=== PATIENT | female | born 1990 | race Caucasian/White ===

== ENCOUNTER → 2018-03-31 16:32 | Outpatient (CLI) | payer OTHER, MEDICAID, SELFPAY ==
[2018-04-01 19:02] LABS: Strep Grp B PCR NEG for Grp B Strep
== END ==
PROVIDERS: Visit Provider Obstetrics & Gynecology
DX: Z34.83 Encounter for supervision of other normal pregnancy, third trimester (principal)
CPT/HCPCS: 87653

== ENCOUNTER 2018-04-10 14:01 | Outpatient (CLI) | payer OTHER, MEDICAID, SELFPAY ==
--- NOTE | 2018-04-11 12:00 | PM.OBTRLD ---
Evaluation Evaluation Baseline heart rate: 145 Variability: Moderate (11-25) monitor accelerations: Present monitor decelerations: Absent Category of Tracing: I
== END 2018-04-10 14:51 | disposition home or self-care (01) ==
LOC: LABOR 14:51 → OB 04-11 15:10
PROVIDERS: Visit Provider Obstetrics & Gynecology
DX: O36.8130 Decreased fetal movements, third trimester, not applicable or unspecified (principal); Z3A.37 37 weeks gestation of pregnancy
CPT/HCPCS: 59025; G0378; G0379

== ENCOUNTER 2018-04-21 07:09 | Inpatient (IN) | payer OTHER, MEDICAID, SELFPAY ==
[2018-04-21 08:28] LABS: Add Manual Diff / Slide Review YES; Hematocrit 36.1 % (36-46); Hemoglobin 12.4 g/dL (12.0-16.0); Mean Corpuscular HGB Conc 34.4 % (30-36); Mean Corpuscular Hemoglobin 33.6 PG (26-34); Mean Corpuscular Volume 97.9 fL (80-100); Platelet Count 338 X10^3/uL (150-400); Red Blood Cell Count 3.69 X10^6/uL (4.0-5.2); Red Cell Distribution Width 13.5 % (11.6-14.8); White Blood Cell Count 16.6 X10^3/uL (4.5-11.0)
[2018-04-21 08:58] VITALS: BP 120/61
[2018-04-21 09:17] LABS: Neutrophils Absolute Manual 11288 /uL (3000-5900); RBC Morphology Normal Morphology; Total Cells Counted 100
--- NOTE | 2018-04-21 17:06 | PM.OBPRVD ---
Events: Labor Augmentation Delivery date: 04/21/18 Intrapartal events: None Induction method: AROM Delivery monitor: external FHT Route of delivery: Laceration description: Superficial (Perineum) Delivery repair: chromic Estimated blood loss (mL): 200 Anesthesia type: None Complications: None Narrative: Patient complete and pushed with 1 contraction. At 4:32 p.m., a live male delivered spontaneously over an intact perineum. No nuchal cord. The remainder of the body delivered without difficulty and was placed on mom's abdomen. The cord was double clamped and cut after it stopped pulsing. The placenta delivered intact with a 3 vessel cord at 4:42 p.m.. There was a superficial perineal laceration which was repaired with 3 0 chromic after 5 cc of 1% lidocaine were injected. Mom and stable to recovery Hemostasis was achieved. Apgars 9 at 1 min and 9 at 5 min. Estimated blood loss 250 cc. No analgesia. . Mom and stable to recovery.
[2018-04-21] MEDS: KETOROLAC 30 MG/ML VIAL IV ×2 (17:31→23:44)
[2018-04-21] MEDS: OXYCODONE/ACETAMINOPHEN 5/325 TABLET 2 TAB PO ×2 (18:04→22:13)
[2018-04-22 04:49] VITALS: TEMP 36.6
[2018-04-22] MEDS: OXYCODONE/ACETAMINOPHEN 5/325 TABLET 2 TAB PO ×2 (04:49→10:44)
[2018-04-22 05:28] LABS: Hematocrit 32.4 % (36-46); Hemoglobin 11.3 g/dL (12.0-16.0)
[2018-04-22] MEDS: KETOROLAC 30 MG/ML VIAL IV (06:14)
--- NOTE | 2018-04-23 14:10 | PM.OBHP.1 ---
OB HPI Date/Time Date of admission: 04/20/18 Date Patient Seen: 04/20/18 Time Patient Seen: 07:30 History of Present Illness Chief complaint: LABOR & DELIVERY : 4 Para: 3 Estimated Date of Delivery: 04/27/18 Estimated Gestational Age (weeks): 39+ 4 Narrative: Marcia Matthew is a 27 year old female 4 para 3 who presents for induction of labor at 39 and 4 7th weeks gestation secondary to advanced cervical dilation, history of precipitous deliveries, and living on [facility]. Indications Indication for induction OB: history of rapid labor and other (Advanced cervical dilation, lives in [facility]) History of Present care: number of visits (10) Dating criteria: LMP confirmed by 1st trimester US Ultrasounds: normal 1st trimester US and normal mid trimester US Obstetrical complications: none Medical complications: none Preadmission Labs Blood type: O (+) positive -: Antibody screen: negative, GBS status: negative, HBsAG: negative, HIV: negative, HSV 1: negative, HSV 2: positive and RPR/VDLR: negative -: Chlamydia screen: not detected and Gonorrhea screen: not detected -: Rubella: not immune and Varicella: immune HCT: 34.6 HCAB: negative PAP: Normal Urine: Negative 1 hr GTT: 87 Prior (ies) History: 3 spontaneous vaginal deliveries Evaluation Evaluation Baseline heart rate: 135 Variability: Moderate (11-25) monitor accelerations: Present monitor decelerations: Absent Category of Tracing: I Cervical dilation (cm): 4 Cervical effacement (%): 80 station: -1 Laboratory results: Laboratory Tests 04/21/18 04/21/18 04/22/18 08:00 08:00 05:00 WBC 16.6 H RBC 3.69 L Hgb 12.4 Hct 36.1 MCV 97.9 MCH 33.6 MCHC 34.4 RDW 13.5 Plt Count 338 Neut % (Auto) Not Reportable Lymph % (Auto) Not Reportable [place] % (Auto) Not Reportable Eos % (Auto) Not Reportable Baso % (Auto) Not Reportable Total Counted 100 Seg Neutrophils % 62.0 Band Neutrophils % 6.0 Lymphocytes % (Manual) 19.0 L Monocytes % (Manual) 7.0 Eosinophils % (Manual) 2.0 Metamyelocytes % 3.0 H Myelocytes % 1.0 H Neutrophils # (Manual) 74332 H RBC Morphology Normal morphology Blood Type O Negative Antibody Screen Positive Antibody Identification Anti-D Maternal Bleed Negative 04/22/18 05:00 WBC RBC Hgb 11.3 L Hct 32.4 L MCV MCH MCHC RDW Plt Count Neut % (Auto) Lymph % (Auto) [place] % (Auto) Eos % (Auto) Baso % (Auto) Total Counted Seg Neutrophils % Band Neutrophils % Lymphocytes % (Manual) Monocytes % (Manual) Eosinophils % (Manual) Metamyelocytes % Myelocytes % Neutrophils # (Manual) RBC Morphology Blood Type Antibody Screen Antibody Identification Maternal Bleed PFSH Social History Smoking Status: Never smoker Meds Home Medications Medication Instructions Recorded Confirmed Type valacyclovir 500 mg tablet 500 mg PO Q12H #14 tab 04/14/18 Rx oxycodone-acetaminophen 2 tab PO Q4HR #20 tab 04/22/18 Rx Allergies Allergy/AdvReac Type Severity Reaction Status Date / Time No Known Drug Allergies Allergy Verified 04/21/18 19:40 Exam Vital Signs (past 8 hours): Generally: A well-developed, well-nourished female, no acute distress Fundal height: 40 cm Estimated weight: 7 and 0.5 lb Extremities: Negative Homans, no edema Objective Labs Result Diagrams: 04/22/18 05:00 Assessment and Plan (1) 39 weeks gestation of : Current visit: No Status: Acute Plan: Medications: New: oxycodone-acetaminophen 5-325 mg 2 tabs PO Q4HR Plan: Assessment: 27-year-old 4 para 3 at 39 and 4 7th weeks gestation with a history of rapid deliveries, advanced cervical dilation, lives on [facility] Plan: Artificial rupture of membranes Expectant management of spontaneous vaginal delivery
--- NOTE | 2018-04-23 14:18 | P.HPOB_ITS ---
OB HPI Date/Time Date of admission: 04/20/18 Date Patient Seen: 04/20/18 Time Patient Seen: 07:30 History of Present Illness Chief complaint: LABOR & DELIVERY : 4 Para: 3 Estimated Date of Delivery: 04/27/18 Estimated Gestational Age (weeks): 39+ 4 Narrative: Marcia Matthew is a 27 year old female 4 para 3 who presents for induction of labor at 39 and 4 7th weeks gestation secondary to advanced cervical dilation, history of precipitous deliveries, and living on [facility]. Indications Indication for induction OB: history of rapid labor and other (Advanced cervical dilation, lives in [facility]) History of Present care: number of visits (10) Dating criteria: LMP confirmed by 1st trimester US Ultrasounds: normal 1st trimester US and normal mid trimester US Obstetrical complications: none Medical complications: none Preadmission Labs Blood type: O (+) positive -: Antibody screen: negative, GBS status: negative, HBsAG: negative, HIV: negative, HSV 1: negative, HSV 2: positive and RPR/VDLR: negative -: Chlamydia screen: not detected and Gonorrhea screen: not detected -: Rubella: not immune and Varicella: immune HCT: 34.6 HCAB: negative PAP: Normal Urine: Negative 1 hr GTT: 87 Prior (ies) History: 3 spontaneous vaginal deliveries Evaluation Evaluation Baseline heart rate: 135 Variability: Moderate (11-25) monitor accelerations: Present monitor decelerations: Absent Category of Tracing: I Cervical dilation (cm): 4 Cervical effacement (%): 80 station: -1 Laboratory results: Laboratory Tests 04/21/18 04/21/18 04/22/18 08:00 08:00 05:00 WBC 16.6 H RBC 3.69 L Hgb 12.4 Hct 36.1 MCV 97.9 MCH 33.6 MCHC 34.4 RDW 13.5 Plt Count 338 Neut % (Auto) Not Reportable Lymph % (Auto) Not Reportable [place] % (Auto) Not Reportable Eos % (Auto) Not Reportable Baso % (Auto) Not Reportable Total Counted 100 Seg Neutrophils % 62.0 Band Neutrophils % 6.0 Lymphocytes % (Manual) 19.0 L Monocytes % (Manual) 7.0 Eosinophils % (Manual) 2.0 Metamyelocytes % 3.0 H Myelocytes % 1.0 H Neutrophils # (Manual) 04632 H RBC Morphology Normal morphology Blood Type O Negative Antibody Screen Positive Antibody Identification Anti-D Maternal Bleed Negative 04/22/18 05:00 WBC RBC Hgb 11.3 L Hct 32.4 L MCV MCH MCHC RDW Plt Count Neut % (Auto) Lymph % (Auto) [place] % (Auto) Eos % (Auto) Baso % (Auto) Total Counted Seg Neutrophils % Band Neutrophils % Lymphocytes % (Manual) Monocytes % (Manual) Eosinophils % (Manual) Metamyelocytes % Myelocytes % Neutrophils # (Manual) RBC Morphology Blood Type Antibody Screen Antibody Identification Maternal Bleed PFSH Social History Smoking Status: Never smoker Meds Home Medications Medication Instructions Recorded Confirmed Type valacyclovir 500 mg tablet 500 mg PO Q12H #14 tab 04/14/18 Rx oxycodone-acetaminophen 2 tab PO Q4HR #20 tab 04/22/18 Rx Allergies Allergy/AdvReac Type Severity Reaction Status Date / Time No Known Drug Allergies Allergy Verified 04/21/18 19:40 Exam Vital Signs (past 8 hours): Generally: A well-developed, well-nourished female, no acute distress Fundal height: 40 cm Estimated weight: 7 and 0.5 lb Extremities: Negative Homans, no edema Objective Labs Result Diagrams: 04/22/18 05:00 Assessment and Plan (1) 39 weeks gestation of : Current visit: No Status: Acute Plan: Medications: New: 2 oxycodone-acetaminophen 5-325 mg 2 tabs PO Q4HR Plan: Assessment: 27-year-old 4 para 3 at 39 and 4 7th weeks gestation with a history of rapid deliveries, advanced cervical dilation, lives on [facility] Plan: Artificial rupture of membranes Expectant management of spontaneous vaginal delivery
--- NOTE | 2018-04-23 14:18 | PM.OBDS.1 ---
Discharge Providers Date of admission: 04/21/18 07:09 Consults: 04/21/18 17:22 Consult to Staff Services Manager Routine Comment: Discharge provider: Honey Dyer MD Discharge Date: 04/22/18 Summary Date Patient Seen: 04/22/18 Time Patient Seen: 10:45 Peripartum Data Infant Delivery Method: Natural Vaginal Laceration description: Perineal - 1st Degree Episiotomy description: None complications: none Discharge Diagnosis (1) 39 weeks gestation of : Status: Acute (2) Normal spontaneous vaginal delivery: Status: Acute Status at Discharge Functional status at discharge: independent ambulation Overall status at discharge: patient is progressing back to baseline Time Spent with Patient Total time spent providing and/or coordinating discharge services: Less than 30 minutes Objective Labs Result Diagrams: 04/22/18 05:00 Discharge Plan Discharge Plan Patient Disposition: Home, Self-Care Discharge Med Rec/Prescriptions Prescriptions: New oxycodone-acetaminophen 5-325 mg Tablet 2 tab PO Q4HR Qty: 20 RF: 0 No Action valacyclovir [Valtrex] 500 mg tablet 500 mg PO Q12H Qty: 14 RF: 0 Follow up/Referrals: Honey Dyer MD [Physician] - Provider Discharge Instructions Diet: Diet as Tolerated Activity: pelvic rest, no heavy lifting Visit Report/Discharge Packet Visit Report Forms: Stroke Signs & Symptoms Discharge Data Attending Provider: Honey Dyer Admit Date/Time: 04/21/18 07:09 Discharges patient from system. Discharge Date/Time: 04/22/18 11:20
== END 2018-04-22 11:20 | disposition home or self-care (01) | DRG 560 ==
PROVIDERS: Admitting Provider Obstetrics & Gynecology; Visit Provider Obstetrics & Gynecology
DX: O70.0 First degree perineal laceration during delivery (principal); Z3A.39 39 weeks gestation of pregnancy; Z37.0 Single live birth
CPT/HCPCS: 36415; 59050; 59409; 85014; 85018; 85025; 85461; 86850; 86870; 86900; 86901; G0379; J1885